=== PATIENT | male | born 2000 | race African-American/Black ===

== ENCOUNTER 2020-03-01 09:59 | Emergency (ER) | payer OTHER ==
[~2020-03-01] VITALS: Ht 165.1 cm; Wt 68.0 kg
[2020-03-01 12:06] LABS: HEMATOCRIT 46.4 % (42.0-52.0); HEMOGLOBIN 15.7 gm/dL (14.0-18.0); MCH 28.5 pg (26.0-34.0); MCHC 33.7 g/dL (28.0-37.0); MCV 84.4 fL (80.0-100.0); PLATELET COUNT 184 thou/uL (150-400); RDW 13.8 % (10.5-14.5); WBC 5.2 thou/uL (4.0-11.0)
[2020-03-01 12:13] LABS: ANION GAP 8 mmol/L (7-16); BUN 16 mg/dL (7-18); CALCIUM 8.9 mg/dL (8.5-10.1); CHLORIDE 102 mmol/L (98-107); CO2 26 mmol/L (21-32); CREATININE 1.2 mg/dL (0.7-1.3); GLUCOSE 90 mg/dL (74-106); POTASSIUM 3.8 mmol/L (3.5-5.1); SODIUM 136 mmol/L (136-145)
[2020-03-01 12:22] LABS: TROPONIN-I <0.06 ng/mL (<0.06)
[2020-03-01 12:57] LABS: ABSOLUTE NEUTROPHILS 2.9 thou/uL (1.4-8.2)
[2020-03-01 12:58] LABS: ANISOCYTOSIS SLIGHT
[2020-03-01] MEDS ORDERED: MOBIC15 MG PO (13:14)
[2020-03-01 13:36] VITALS: BP 106/70
--- NOTE | 2020-03-01 14:08 | EKG ---
[facility] [place] [address] ELECTROCARDIOGRAM REPORT Name: DARRELL PIERCE Room #: [facility]ust[facility] [id number] Admission: 03/01/20 Attend Phys: Discharge: 03/01/20 Date of : [birth year] Report #: [id number] THIS REPORT FOR: cc: LORI Stevens family physician/PCP LORI - Hilda family physician/PCP Neeraj Alicia MD ~ THIS REPORT FOR: //name// [facility] ED Test Date: 2020-03-01 Test Time: 10:21:27 Pat Name: DARRELL PIERCE Department: Room: Gender: Managing Supervisor: ESHEETS : 2000 Requested By: Jazmyn Torres Order Number: [id number] MD: Neeraj Alicia Measurements Intervals Bryant Rate: 58 P: 31 ND: 172 QRS: 48 QRSD: 94 T: 36 QT: 391 QTc: 385 Interpretive Statements Sinus rhythm LVH by voltage ST elev, probable normal early repol pattern Baseline wander in lead(s) V1,V2 No previous ECG available for comparison Electronically Signed On 03-01-2020 14:07:19 CDT by Neeraj Alicia [email or web address] <ELECTRONICALLY SIGNED> By: Neeraj Alicia MD 03/01/20 1407 1021 1021 Neeraj Alicia MD /EPI
== END 2020-03-01 13:36 | disposition home or self-care (01) ==
LOC: ER 09:59
PROVIDERS: Emergency Medicine
DX: R07.89 Other chest pain (principal)